=== PATIENT | female | born 1950 | race Caucasian/White ===

== ENCOUNTER 2018-06-01 16:13 | Emergency (ER) | payer MEDICARE, OTHER ==
[2018-06-01] MEDS ORDERED: Lidocaine 2% with EPINEPHrine 1:200,000 20 ML SDV ONE (16:46)
[2018-06-01] MEDS ORDERED: Lidocaine 2% with EPINEPHrine 1:200,000 20 ML SDV INJECT ONE (16:50)
--- NOTE | 2018-06-01 17:15 | EDM.PDOC ---
ED HPI GENERAL MEDICAL PROBLEM - General Chief Complaint: Laceration Stated Complaint: LEFT LOWER LEG LACERATION Time Seen by Provider: 06/01/18 17:10 Source of Information: Reports: Patient History Limitations: Reports: No Limitations - History of Present Illness INITIAL COMMENTS - FREE TEXT/NARRATIVE: Patient is a 67-year-old female who presents to the emergency department this afternoon with a complaint of left lower extremity laceration. Patient states that she was coming down stairs of her camper and accidentally cut it on a sharp piece of metal. Patient states she is up-to-date for tetanus. Patient denies any other injury. Onset: Today Onset Date: 06/01/18 Duration: Hour(s): Location: Reports: Lower Extremity, Left Quality: Reports: Ache Severity: Mild Improves with: Reports: None Worsens with: Reports: None Context: Reports: Trauma Associated Symptoms: Reports: No Other Symptoms Treatments [employer]: Reports: Dressing(s) Left Lower Leg Pain Score (Numeric/FACES): 3 - Related Data Allergies Allergy/AdvReac Type Severity Reaction Status Date / Time amoxicillin [From Augmentin] Allergy Nausea and Verified 06/01/18 16:45 Vomiting clavulanic acid Allergy Nausea and Verified 06/01/18 16:45 [From Augmentin] Vomiting sulfamethoxazole Allergy Rash Verified 06/01/18 16:45 [From Bactrim] trimethoprim [From Bactrim] Allergy Rash Verified 06/01/18 16:45 Home Meds: Home Meds Cholecalciferol (Vitamin D3) [Vitamin D3] 2,000 unit PO DAILY 06/01/18 [History] Cyanocobalamin (Vitamin B-12) [Vitamin B-12] 2,000 mcg PO DAILY 06/01/18 [ History] Fluticasone/Salmeterol [Advair 250-50] 1 puff INH BID 06/01/18 [History] Losartan [Cozaar] 25 mg PO DAILY 06/01/18 [History] Montelukast [Singulair] 10 mg PO DAILY 06/01/18 [History] Pravastatin Sodium [Pravastatin (Pravachol)] 40 mg PO BEDTIME 06/01/18 [History] buPROPion HCl [Wellbutrin Xl] 300 mg PO DAILY 06/01/18 [History] ED ROS GENERAL - Review of Systems Review Of Systems: ROS reveals no pertinent complaints other than HPI. Constitutional: Reports: No Symptoms HEENT: Reports: No Symptoms Respiratory: Reports: No Symptoms Cardiovascular: Reports: No Symptoms Endocrine: Reports: No Symptoms GI/Abdominal: Reports: No Symptoms : Reports: No Symptoms Musculoskeletal: Reports: Leg Pain Skin: Reports: Wound (Laceration to left [place]) Neurological: Reports: No Symptoms Psychiatric: Reports: No Symptoms Hematologic/Lymphatic: Reports: No Symptoms Immunologic: Reports: No Symptoms ED EXAM, SKIN/RASH Exam: See Below Exam Limited By: No Limitations General Appearance: Alert, WD/WN, No Apparent Distress Throat/Mouth: Normal Inspection, Normal Oropharynx, No Airway Compromise Head: Atraumatic, Normocephalic Respiratory/Chest: No Respiratory Distress Extremities: Other (Laceration to left tib-fib) Neurological: Alert, Oriented, Normal Cognition Psychiatric: Normal Affect, Normal Mood Skin: Warm, Dry, Normal Color, No Rash, Wound/Incision (There is a 6 cm V- shaped laceration to the left anterior mid tib-fib) Location, Skin: Lower Extremity, Left ED SKIN PROCEDURES - Laceration/Wound Repair Left Anterior Midline Leg Appearance: Superficial Distal NVT: Neuro & Vascular Intact Anesthetic Type: Local Local Anesthesia - Lidocaine (Xylocaine): 1% with EPI Local Anesthetic Volume: 3cc Skin Prep: Providone-Iodine (Betadine) Closed with: Sutures Suture Size: 4-0 Suture Type: Nylon, Interrupted Sterile Dressing Applied: Nurse Tetanus Status Addressed: Yes Complications: No Course - Vital Signs Last Recorded V/S: Last Vital Signs Temp 98.4 F 06/01/18 16:31 Pulse 99 06/01/18 16:31 Resp 18 06/01/18 16:31 BP 206/106 H 06/01/18 16:31 Pulse Ox 98 06/01/18 16:31 - Orders/Labs/Meds Meds: Medications Discontinued Medications Generic Name Dose Route Start Last Admin Trade Name Freq PRN Reason Stop Dose Admin Lidocaine/Epinephrine Confirm 06/01/18 16:46 Xylocaine-Mpf 2%-Epi 1:200,000 Administered 06/01/18 16:47 Dose 20 ml .ROUTE .STK-MED ONE - Re-Assessments/Exams Free Text/Narrative Re-Assessment/Exam: 06/01/18 17:15 Patient afebrile, nontoxic appearing, vital signs stable, tolerated procedure well. Patient will follow-up with her primary doctor for suture removal in 10 days Departure - Departure Time of Disposition: 17:15 Disposition: Home, Self-Care 01 Condition: Good Clinical Impression: Laceration of leg Qualifiers: Encounter type: initial encounter Laterality: left Qualified Code(s): S81.812A - Laceration without foreign body, left lower leg, initial encounter - Discharge Information Instructions: Laceration Care, Adult, [id number], Stitches, Geena, or Adhesive Wound Closure, [id number] Referrals: PCP,Not In Area [Primary Care Provider] - Additional Instructions: Follow-up with PCP in 10 days for suture removal. - Assessment/Plan Assessment:: Leg laceration repair Plan: Follow-up with PCP in 10 days for suture removal
== END 2018-06-01 17:25 | disposition home or self-care (01) ==
LOC: KA.ED 16:13
DX: S81.812A Laceration without foreign body, left lower leg, initial encounter (principal); Z88.1 Allergy status to other antibiotic agents; Z88.2 Allergy status to sulfonamides; Z79.899 Other long term (current) drug therapy; W26.8XXA Contact with other sharp object(s), not elsewhere classified, initial encounter
CPT/HCPCS: 12002; 99282